=== PATIENT | male | born 1990 | race Caucasian/White ===

== ENCOUNTER 2019-10-01 09:28 | Emergency (ER) | payer OTHER ==
[~2019-10-01] VITALS: Ht 190.5 cm; Wt 95.3 kg
[2019-10-01 09:36] VITALS: Ht 190.5 cm; Wt 95.3 kg
[2019-10-01 10:53] LABS: BASOPHIL % 0.7 % (0-2); PLATELET COUNT 173 x10^3mcL (130-400); RED CELL DISTRIBUTION WIDTH 14.2 % (11.5-14.5)
[2019-10-01 12:20] LABS: CALCIUM 9.3 mg/dL (8.5-10.1); CARBON DIOXIDE 26.2 mmol/L (21-32); CHLORIDE SERUM 107 mmol/L (98-107); CREATININE SERUM 0.8 mg/dL (0.7-1.3); GFR1 > 60 mL/min; GLUCOSE SERUM 74 mg/dL (74-106); SODIUM SERUM 144 mmol/L (136-145)
[2019-10-01 15:24] VITALS: BP 141/77
== END 2019-10-01 15:24 | disposition home or self-care (01) ==
LOC: ED 09:28
PROVIDERS: Emergency Medicine
DX: T42.4X1A Poisoning by benzodiazepines, accidental (unintentional), initial encounter (principal); G92 Toxic encephalopathy; Y92.89 Other specified places as the place of occurrence of the external cause
CPT/HCPCS: 36415; 82962; G0480